=== PATIENT | male | born 1995 | race Caucasian/White ===

== ENCOUNTER → 2017-10-05 | Emergency (ER) | payer MEDICAID ==
[~2017-10-05] VITALS: Ht 170.2 cm; Wt 72.7 kg
[~2017-10-05] MED LIST: EPIN0.3P3 IM; LORazepam 2 mg/ml vial IM ONE; diphenhydrAMINE 50 mg/ml inj IM ONE; normal saline 1000ML IV soln IVB ONE; normal saline 1000ml 1,000 ML IV ONE; ringers solution, lactated 1000ml IV soln IV ONE
[2017-10-05 02:57] LABS: CREATINE KINASE 650 U/L (39-308)
[2017-10-05 03:53] LABS: URINE AMPHETAMINE SCREEN POSITIVE (Neg); URINE BARBITUATE SCREEN NEGATIVE (Neg); URINE BENZODIAZEPINES SCREEN NEGATIVE (Neg); URINE CANNABINOID SCREEN POSITIVE (Neg); URINE COCAINE SCREEN NEGATIVE (Neg); URINE METHADONE SCREEN NEGATIVE (Neg); URINE OPIATE SCREEN NEGATIVE (Neg); URINE PHENCYCLIDINE SCREEN NEGATIVE (Neg)
[2017-10-05 04:20] VITALS: BP 109/64
== END | disposition home or self-care (01) ==
LOC: ER 02:32
DX: S00.03XA Contusion of scalp, initial encounter (principal); S70.211A Abrasion, right hip, initial encounter; S40.211A Abrasion of right shoulder, initial encounter; F15.10 Other stimulant abuse, uncomplicated; R41.82 Altered mental status, unspecified; Z79.899 Other long term (current) drug therapy; W22.8XXA Striking against or struck by other objects, initial encounter; Y93.89 Activity, other specified; Y92.810 Car as the place of occurrence of the external cause; Y99.8 Other external cause status
CPT/HCPCS: 36415; 70450; 80305; 82550; 96372; 99285; J7120

== ENCOUNTER 2020-01-10 09:55 | Emergency (ER) | payer MEDICAID ==
[~2020-01-10] VITALS: Ht 175.3 cm; Wt 70.7 kg
[~2020-01-10 09:55] MED LIST changes: -LORazepam 2 mg/ml vial IM ONE; -diphenhydrAMINE 50 mg/ml inj IM ONE; -normal saline 1000ML IV soln IVB ONE; -normal saline 1000ml 1,000 ML IV ONE; -ringers solution, lactated 1000ml IV soln IV ONE
[2020-01-10 09:58] VITALS: BP 145/69
== END 2020-01-10 12:53 | disposition home or self-care (01) ==
LOC: ER 09:56
DX: F15.10 Other stimulant abuse, uncomplicated (principal); F41.9 Anxiety disorder, unspecified; F17.200 Nicotine dependence, unspecified, uncomplicated; F10.10 Alcohol abuse, uncomplicated; Z79.899 Other long term (current) drug therapy; Z00.8 Encounter for other general examination
CPT/HCPCS: 99281

== ENCOUNTER 2020-02-03 03:46 | Emergency (ER) | payer MEDICAID ==
[~2020-02-03] VITALS: Ht 172.7 cm; Wt 65.0 kg
[2020-02-03 03:51] VITALS: BP 144/105
== END 2020-02-03 04:22 ==
LOC: ER 03:46
DX: S01.511A Laceration without foreign body of lip, initial encounter (principal); S09.90XA Unspecified injury of head, initial encounter; F41.9 Anxiety disorder, unspecified; F15.10 Other stimulant abuse, uncomplicated; Z02.89 Encounter for other administrative examinations; W22.8XXA Striking against or struck by other objects, initial encounter; Y93.89 Activity, other specified; Y92.89 Other specified places as the place of occurrence of the external cause; Y99.8 Other external cause status
CPT/HCPCS: 82948; 99283

== ENCOUNTER 2024-10-14 11:18 | Inpatient (IN) | payer MEDICAID ==
[~2024-10-14] VITALS: Ht 175.3 cm; Wt 80.5 kg
[~2024-10-14 11:18] MED LIST changes: +CEPH-585 PO; +NAPR-56 PO; +SULF1TAB49 PO
[2024-10-14] MEDS: TETanus/Pertussis (Acell)/Diphther VAC/PF (Tdap-Adult) 0.5ml syringe IMVAC ONE (11:41)
--- NOTE | 2024-10-14 11:41 | Physician Documentation ---
History of Present Illness ~ Chief Complaint: Bite-animal Stated Complaint: R HAND RECHECK Time Seen by MD: 11:31 Primary Medical Doctor: none HPI This 28-year-old male returns to the ED after being seen recently for a suspected insect/abscess or animal bite. The patient was placed on Bactrim and Keflex. however ,patient has developed worse symptoms in his right hand this is no longer draining and has increased swelling. denies any fevers Medication Reconciliation Allergies: Coded Allergies: No Known Allergies (Unverified , 10/11/24) Miscellaneous Medications Home Med List (No Home Medications), (Reported) Discontinued Medications Cephalexin*Monohydrate* (Keflex*), 1 CAP PO TID Discontinued Reason: Diagnosis changed Epinephrine (Epipen 2-Casimiro), 1 SYR IM ONCE PRN for allergies Discontinued Reason: Diagnosis changed Naproxen (Naproxen), 1 TAB PO Q12H Discontinued Reason: Diagnosis changed Sulfamethoxazole/Trimethoprim (Bactrim Ds Tablet), 1 TAB PO Q12H Discontinued Reason: Diagnosis changed Past Medical History Past Medical History: Anxiety Past Surgical History: no surgical history Alcohol Use: Abuse Drug Use: methamphetamine Lives with: Family Lives In: Home Occupation: employed Physical Exam Vital Signs: Temperature: 97.8, Source: Temporal, Heart Rate: 121, Respiratory Rate: 16, BP: 124/81, Pulse Oximetry: 100, Weight: 80.500 Physical Exam General: Alert, no apparent distress. Extremities: Normal range of motion, no deformity. r hand 2nd digit is resting in a flexed posture, does not have fusiform swelling over the whole finger notable swelling proximal to incision site . n Neurologic: Oriented x4. Psychiatric: Normal mood and affect. Progress Results/Orders Results/Orders Orders - DAMIÁN DHALIWAL [employer] OPERATOR Page Hospitalist (10/14/24 ) * Npo After Midnight * (10/14/24 12:05) Culture Blood (10/14/24 12:30) Monitor (10/14/24 12:30) Saline Lock (10/14/24 12:30) Completed Orders - DAMIÁN DHALIWAL [employer] OPERATOR Tetanus/Pertuss/Diph Acell/Pf (Boostrix (10/14/24 11:35) Piperacillin/Tazo 4.5gm/100ml (Zosyn 4.5 (10/14/24 12:05) Normal Saline 1000ml (0.9% Sodium Chlori (10/14/24 12:05) Cbc/Diff (10/14/24 12:30) Urinalysis, Cult If Indicated (10/14/24 12:30) Procalcitonin (10/14/24 12:30) BMP (10/14/24 12:30) Lacticsepsis (10/14/24 12:30) Medications Received in ER Medications (Trade) Dose Ordered Sig/Kirsten Route PRN Reason Start Time Stop Time Status Last Admin Dose Admin (Boostrix vaccine syringe) 0.5 ml ONCE ONCE IMVAC 10/14/24 11:35 10/14/24 11:36 DC 10/14/24 11:41 0.5 ML Piperacillin/ Tazobactam/ Dextrose 100 ml @ 100 mls/hr NOW ONCE IV 10/14/24 12:05 10/14/24 13:04 DC 10/14/24 12:59 100 MLS/HR (0.9% sodium chloride (NS) 1000ml IV soln) 2,000 ml ONCE ONCE IVB 10/14/24 12:05 10/14/24 12:06 DC 10/14/24 12:53 2,000 ML Vital Signs 10/14/24 11:19 Temp 97.8 Pulse 121 Resp 16 B/P (MAP) 124/81 Pulse Ox 100 Laboratory Tests Test 10/14/24 12:41 White Blood Count 10.1 Red Blood Count 5.30 Hemoglobin 16.5 Hematocrit 47.9 Mean Corpuscular Volume 90.3 Mean Corpuscular Hemoglobin 31.1 H Mean Corpuscular Hemoglobin Concent 34.5 Red Cell Distribution Width 14.3 Platelet Count 302 Mean Platelet Volume 8.0 Neutrophils (%) (Auto) 74.5 Lymphocytes (%) (Auto) 17.1 L Monocytes (%) (Auto) 7.2 Eosinophils (%) (Auto) 0.8 Basophils (%) (Auto) 0.4 Neutrophils # (Auto) 7.6 Lymphocytes # (Auto) 1.7 Monocytes # (Auto) 0.7 Eosinophils # (Auto) 0.1 Basophils # (Auto) 0.0 CBC Comment Prothrombin Time 10.9 INR International Normalized Ratio 1.1 Activated Partial Thromboplast Time 30 Coagulation Comments Sodium Level 135 Potassium Level 4.5 Chloride Level 101 Carbon Dioxide Level 25.1 Anion Gap 9 Blood Urea Nitrogen 15 Creatinine 1.16 H Estimated GFR/1.73 m2 76 BUN/Creatinine Ratio 12.9 Glucose Level 93 Lactic Acid Level 0.8 Calcium Level 9.6 Albumin 4.3 Procalcitonin 0.20 Chemistry Comments Microbiology Date/Time Source Procedure Growth Status 10/14/24 12:45 Blood Arm Left Blood Culture - Preliminary NEGATIVE (LESS THAN 24 HOURS) Resulted Medical Decision Making Findings Dr winkler is aware of PT . he will take him to OR for washout tomorrow NPO at midnight has no signs tenosynovitis at this time Differential Dx:Considerations: Include: Abrasion, Allergic reaction, Anaphylaxis, Cellulitis, Contusion, Fracture, Hematoma, Insect envenomation, Laceration, Neurovascular injury, Punture wound, Retained foreign body, Urticaria, Other Departure Disposition: 09 ADMITTED INPATIENT Impression: Primary Impression: Cellulitis Discharge Instructions: Animal Bite, Adult Referrals: NO PRIMARY CARE PROVIDER (PCP) Signature Scribe Signature: h Attestation: Scribed for Ale Marie MD by Damián Swain NP . 10/14/24 15:10 DAMIÁN DHALIWAL NP Oct 14, 2024 11:40
--- NOTE | 2024-10-14 12:41 | HISTORY AND PHYSICAL ---
History & Physical Providers to CC ~ History of Present Illness Reason for Admit\Complaint: Cellulitis History of Present Illness Chief complaint right hand redness swelling x2 weeks History of present illness patient is a 28-year-old that was bitten by his own dog about two weeks ago. Patient came to the ER on 10/11/2024 and had an I&D done of his right hand. Is says he was given antibiotics two different types he does not know the names of he went home he was taking them for the last two days but his redness puffiness of his hand continued to increase and he decided to come back in to the hospital. The ER nurse practitioner just in [place] spoke to Dr. Mueller who agrees to do a washout tomorrow morning patient is to be made NPO at midnight and admitted for IV antibiotics he was started on Zosyn in the ER. Unfortunately patient does not know the vaccination status of the dog even though it has his own dog when he got from his friend Allergies: Coded Allergies: No Known Allergies (Unverified , 10/11/24) Home Medications Home Medications Active Naproxen 500 Mg Tablet 1 Tab PO Q12H Keflex* (Cephalexin HCl) 500 Mg Capsule 1 Cap PO TID 7 Days Bactrim Ds Tablet (Sulfamethoxazole/Trimethoprim) 800 Mg-160 Mg Tablet 1 Tab PO Q12H 7 Days Epipen 2-Casimiro (Epinephrine HCl) 0.3 Mg/0.3 Ml Auto.injct 1 Syr IM ONCE PRN Past Medical History Past Medical History Past medical history nothing of significance Past surgical history cholecystectomy Social history he is single drinks a couple of beers a week smokes 10 cigarettes a day illicit drug abuse with marijuana Family history nothing of significance Review of systems negative for all 10 systems reviewed Exam Vitals: Vital Signs Date Time Temp Pulse Resp B/P (MAP) Pulse Ox O2 Delivery O2 Flow Rate FiO2 10/14/24 11:19 97.8 121 16 124/81 100 General: Patient is alert and oriented x4 in no acute distress lying down comfortably speaking in full sentences HEENT normocephalic nontraumatic head PERRLA. EOMI. CVS first and second heart sounds are regular rate rhythm no murmurs gallops or rubs Respiratory system is clear to auscultate bilaterally no rales rhonchi crackles or wheezing Abdomen is soft bowel sounds are positive nontender nondistended Extremities no clubbing cyanosis or edema Right hand up to the wrist swollen plus four warm to touch with they open wound on the dorsal surface between the thumb and the index finger Though he has decreased range of motion of his fingers he has good peripheral pulses good capillary refills no crepitations palpated Neurological exam no focal deficits Advance Care Planning Advanced Care plannin - 30 Minutes Additional Plan Assessment and plan --Right hand cellulitis Patient made NPO at midnight for possible washout by Dr. Mueller in a.m. Continue with IV Zosyn Patient is started on DVT prophylaxis Patient is a full code Possible DC home in a.m. Date of Service: Oct 14, 2024 Billing Provider: JAVIER KERN MD Common Visit Codes: 84900-[id number] INP/OBS CARE (HIGH) JAVIER KERN MD Oct 14, 2024 12:41
[2024-10-14] MEDS ORDERED: potassium Cl 40MEQ/1/2NS 520ml 520 ML IV PRN (12:45)
[2024-10-14] MEDS ORDERED: magnesium hydroxide 30ml (MOM) UD suspension PO PRN (12:45)
[2024-10-14] MEDS ORDERED: mag hydrox/Alum hydrox/simeth 30ml oral suspension PO PRN (12:45)
[2024-10-14] MEDS ORDERED: magnesium Cl slow-release 64mg tablet PO PRN (12:45)
[2024-10-14] MEDS ORDERED: HYDROcodone/acetaminophen 5mg/325mg tablet PO PRN (12:45)
[2024-10-14] MEDS ORDERED: ondansetron/PF 4mg/2ml inj IV PRN (12:45)
[2024-10-14] MEDS ORDERED: potassium Cl 20 mEq SR tablet PO PRN ×2 (12:45)
[2024-10-14] MEDS ORDERED: magnesium sulf-water 4G/100mL 100 ML IV PRN (12:45)
[2024-10-14] MEDS ORDERED: magnesium sulf-water 2g/50mL 50 ML IV PRN (12:45)
[2024-10-14 12:53] LABS: MEAN PLATELET VOLUME 8.0 FL (7.4-10.4); RED CELL DISTRIBUTION WIDTH 14.3 % (11.5-14.5)
[2024-10-14] MEDS: normal saline 1000ML IV soln IVB ONE (12:53)
[2024-10-14] MEDS: piperacillin/tazo 4.5gm/100ml 100 ML IV ONE (12:59)
[2024-10-14 13:10] LABS: CREATININE 1.16 MG/DL (0.60-1.10); TOTAL CARBON DIOXIDE 25.1 MMOL/L (24-32); eCRCL 97 ML/MIN; eGFR 76 ML/MIN
[2024-10-14 13:34] LABS: APTT 30 SECONDS (22-32); INR 1.1 INR
[2024-10-14 14:07] LABS: LEUKOCYTE ESTERASE ,URINE NEGATIVE (Neg); NITRITES, URINE NEGATIVE (Neg); OCCULT BLOOD,URINE NEGATIVE (Neg)
[2024-10-14 14:09] LABS: UA COLLECTION TYPE NON-SPECIFIED
[2024-10-14 14:14] LABS: URINE AMPHETAMINE SCREEN NEGATIVE (Neg); URINE BARBITUATE SCREEN NEGATIVE (Neg); URINE BENZODIAZEPINES SCREEN NEGATIVE (Neg); URINE CANNABINOID SCREEN POSITIVE (Neg); URINE COCAINE SCREEN NEGATIVE (Neg); URINE METHADONE SCREEN NEGATIVE (Neg); URINE OPIATE SCREEN NEGATIVE (Neg); URINE PHENCYCLIDINE SCREEN NEGATIVE (Neg)
[2024-10-14] MEDS ORDERED: NO HOME MEDS (14:18)
[2024-10-14 15:40] VITALS: BP 127/73; PULSE 80; RESP 18; TEMP 97.9; O2SAT 98
[2024-10-14] MEDS: piperacillin/tazo 4.5gm/100ml 100 ML IV SCH (16:49)
[2024-10-14 18:00] VITALS: BP 127/66; PULSE 69; RESP 17; TEMP 97; O2SAT 98
[2024-10-14] MEDS: K and/or MAG REPLACEMENT MC SCH (19:22)
[2024-10-14 20:00] VITALS: RESP 17; O2SAT 98
[2024-10-14] MEDS: docusate sod 100mg capsule PO SCH (20:14)
[2024-10-14 22:00] VITALS: BP 124/70; PULSE 55; RESP 18; TEMP 98.1; O2SAT 100
[2024-10-15] VITALS (22 sets, daily range): BP systolic 106–131; BP diastolic 51–98; PULSE 47–81; RESP 10–20; TEMP 97.6–98.8; O2SAT 95–99
[2024-10-15 04:51] LABS: MEAN PLATELET VOLUME 8.0 FL (7.4-10.4); RED CELL DISTRIBUTION WIDTH 13.7 % (11.5-14.5)
[2024-10-15 05:13] LABS: CREATININE 1.10 MG/DL (0.60-1.10); TOTAL CARBON DIOXIDE 24.0 MMOL/L (24-32); eCRCL 102 ML/MIN; eGFR 81 ML/MIN
[2024-10-15] MEDS: enoxaparin 40mg/0.4ml syringe SUBCUT SCH (06:37)
[2024-10-15] MEDS ORDERED: BUPIVAcaine/PF 2.5mg/ml (0.25%) 10ml vial ONE (09:14)
[2024-10-15] MEDS ORDERED: bacitracin 15gm ointment TP ONE (09:14)
[2024-10-15] MEDS ORDERED: midazolam 1 mg/ML 2ml injection ONE (09:25)
[2024-10-15] MEDS ORDERED: fentaNYL/PF 50MCG/1 ML 2ML syringe ONE ×2 (09:25→09:55)
[2024-10-15] MEDS ORDERED: propofol inj 20 ML IV ONE (09:25)
[2024-10-15] MEDS ORDERED: dexamethasone sod phosphate 4mg/ml inj. ONE (09:26)
[2024-10-15] MEDS ORDERED: ondansetron/PF 4mg/2ml inj ONE (09:26)
[2024-10-15] MEDS ORDERED: LIDOcaine 1%/PF 5ML 10 MG/ML VIAL ONE (09:26)
--- NOTE | 2024-10-15 09:38 | ELECTROCARDIOGRAPH REPORT ---
[facility] Test Date: 2024-10-15 Test Time: 07:29:40 Pat Name: DEVI HART Department: Room: [place] [address] [address] Gender: M Biomedical Engineering Technician: IRIS : 1995 Requested By: MECHELLE HUERTA Order Number: [id number] Reading MD: Dr. MAX Diaz Measurements Intervals [place] Rate: 49 P: 51 UT: 132 QRS: 89 QRSD: 100 T: 56 QT: 438 QTc: 395 Interpretive Statements Marked sinus bradycardia Electronically Signed On 10-15-2024 17:31:[address] MAX Diaz Please click the below link to view image of tracing.
[2024-10-15] MEDS ORDERED: acetaminophen 1,000mg/100ml IV 100 ML IV ONE (09:45)
[2024-10-15] MEDS ORDERED: morphine 4 MG/ML inj SYRINge IV PRN (10:05)
[2024-10-15] MEDS ORDERED: ondansetron/PF 4mg/2ml inj IV PRN (10:05)
[2024-10-15] MEDS ORDERED: labetalol 20mg/4ml (5mg/ml) syringe IV PRN (10:05)
[2024-10-15] MEDS ORDERED: fentaNYL/PF 50MCG/1 ML 2ML syringe IV PRN ×2 (10:05)
[2024-10-15] MEDS ORDERED: hydrALAZINE 20mg/ml inj. IV PRN (10:05)
[2024-10-15] MEDS: ringers solution, lacted 1,000 ML IV SCH (10:05)
--- NOTE | 2024-10-15 15:26 | PROGRESS NOTE- Residence ---
Progress Note - Resident Providers to CC Resident Creating Document: LUISA ARRIAGA RES CC: JORDEN FIORE MD ~ Antibiotic Timeout Antibiotic Ordered?: Yes Subjective Patient is seen this morning after the surgery. , right hand is wrapped in dressing. He is complaining of pain 09/07. , no other complaints. Eager to go home early Objective Vital Signs Date Time Temp Pulse Resp B/P (MAP) Pulse Ox O2 Delivery O2 Flow Rate FiO2 10/15/24 11:10 78 12 131/87 (102) 98 Room Air 0.0 10/15/24 10:17 97.0 Result Diagram: 10/15/24 0433 10/15/24 0433 General: Adult male, AAO x4, not in apparent distress Head: Normocephalic with an atraumatic Eyes: Pupils- 3mm, reacting to light, conjunctiva- anicteric Nose and throat: No polyps, septum- normal, no mucosal ulcers Neck: Supple, no lymphadenopathy, no carotid bruit, scar present over sternal notch Respiratory: No use of accessory muscles of respiration, Bilateral normal vesiscular breath sounds heard. No wheeze, rhochi or creps Cardiac: S1-S2 heard, rythm regular, no gallop/murmur Abdomen: non distended, no tenderness, no organomegaly, bowel sounds- heard Extremities: Right hand wrapped in dressing no clubbing, no pedal edema, no deformities, peripheral pulses- 2+ Skin: warm and dry, no rash, no purpura Neuro: No focal deficit, gross cranial nerve exam- normal Coagulation Studies Laboratory Tests Test 10/14/24 12:41 Prothrombin Time 10.9 SECONDS (9.0-12.0) INR International Normalized Ratio 1.1 INR Activated Partial Thromboplast Time 30 SECONDS (22-32) Coagulation Comments Assessment Assessment 28-year-old male with no pertinent past medical history with history of dog bite two weeks ago came to the ER with worsening cellulitis of the right hand even after incision and drainage two days ago and on p.o. antibiotics(Keflex and trimethoprim sulfamethoxazole) Plan Plan Right hand cellulitis Possible right hand tenosynovitis 2/2 dog bite s/p incision and drainage on 10/15 -taken to OR this morning and undergone incision and drainage by Dr. Mueller -empirically started on IV Zosyn 4.5 q.8h -follow up on fluid cultures -as per Dr. Mueller patient is few days of IV antibiotics and also he needs to have the drain removed at the time of discharge -pain management with IV Toradol 15 mg q.6 Dog bite -patient does not know the vaccination status of his dog however dog bite happened two weeks ago and his dog does not have any symptoms of rabies -patient received tetanus vaccination but did not receive any rabies vaccine or immunoglobin, and likely he might not be needing them -requested ID input from Dr. Damon. appreciate recs Code Status: Full code Line/tube: PIV DVT prophylaxis: Lovenox Nutrition: Regular diet PT: No Prognosis: Guarded Disposition: Continue care in surgical floor, follow up on cultures, poss dc home over the weekend Luisa Arriaga MD IM PGY-3 resident Date of Service: Oct 15, 2024 Billing Provider: JORDEN FIORE MD, HARIVARSHA, RES Oct 15, 2024 15:26
[2024-10-15] MEDS: ketorolac trometh 15mg/ml vial 15 MG/ML ML IV PRN (15:54)
[2024-10-16] VITALS (7 sets, daily range): BP systolic 106–117; BP diastolic 55–74; PULSE 48–64; RESP 14–18; TEMP 98–98.4; O2SAT 96–100
[2024-10-16 06:03] LABS: MEAN PLATELET VOLUME 8.4 FL (7.4-10.4); RED CELL DISTRIBUTION WIDTH 13.7 % (11.5-14.5)
[2024-10-16 06:13] LABS: CREATININE 1.00 MG/DL (0.60-1.10); TOTAL CARBON DIOXIDE 26.5 MMOL/L (24-32); eCRCL 112 ML/MIN; eGFR 90 ML/MIN
--- NOTE | 2024-10-16 13:51 | PROGRESS NOTE- Residence ---
Progress Note - Resident Providers to CC Resident Creating Document: LUISA ARRIAGA RES CC: JORDEN FIORE MD ~ Antibiotic Timeout Antibiotic Ordered?: Yes If Yes, Indications: right hand cellulitis Subjective Patient is seen this morning. NAOE, sleeping and said no c/o Objective Vital Signs Date Time Temp Pulse Resp B/P (MAP) Pulse Ox O2 Delivery O2 Flow Rate FiO2 10/16/24 08:00 18 99 Room Air 10/16/24 06:00 98.0 48 106/59 (75) 10/15/24 11:10 0.0 Result Diagram: 10/16/24 0501 10/16/24 0501 General: Adult male, AAO x4, not in apparent distress Head: Normocephalic with an atraumatic Eyes: Pupils- 3mm, reacting to light, conjunctiva- anicteric Nose and throat: No polyps, septum- normal, no mucosal ulcers Neck: Supple, no lymphadenopathy, no carotid bruit, scar present over sternal notch Respiratory: No use of accessory muscles of respiration, Bilateral normal vesiscular breath sounds heard. No wheeze, rhochi or creps Cardiac: S1-S2 heard, rythm regular, no gallop/murmur Abdomen: non distended, no tenderness, no organomegaly, bowel sounds- heard Extremities: Right hand wrapped in dressing with a drain no clubbing, no pedal edema, no deformities, peripheral pulses- 2+ Skin: warm and dry, no rash, no purpura Neuro: No focal deficit, gross cranial nerve exam- normal Coagulation Studies Laboratory Tests Test 10/14/24 12:41 Prothrombin Time 10.9 SECONDS (9.0-12.0) INR International Normalized Ratio 1.1 INR Activated Partial Thromboplast Time 30 SECONDS (22-32) Coagulation Comments Assessment Assessment 28-year-old male with no pertinent past medical history with history of dog bite two weeks ago came to the ER with worsening cellulitis of the right hand even after incision and drainage two days ago and on p.o. antibiotics(Keflex and trimethoprim sulfamethoxazole) Plan Plan Right hand cellulitis Possible right hand tenosynovitis 2/2 dog bite s/p incision and drainage on 10/15 -taken to OR and undergone incision and drainage by Dr. Mueller on 10/15 -continue IV Zosyn 4.5 q.8h -follow up on fluid cultures -as per Dr. Mueller patient is few days of IV antibiotics and also he needs to have the drain removed at the time of discharge -pain management with IV Toradol 15 mg q.6 Dog bite -patient does not know the vaccination status of his dog however dog bite happened two weeks ago and his dog does not have any symptoms of rabies -patient received tetanus vaccination but did not receive any rabies vaccine or immunoglobin, and likely he might not be needing them -requested ID input from Dr. Damon. recommended no rabies vaccine or IG Code Status: Full code Line/tube: PIV DVT prophylaxis: Lovenox Nutrition: Regular diet PT: No Prognosis: Guarded Disposition: Continue care in surgical floor, follow up on cultures, DC home on friday Luisa Arriaga MD IM PGY-3 resident Date of Service: Oct 16, 2024 Billing Provider: JORDEN FIORE MD, HARIVARSHA, RES Oct 16, 2024 13:51
[2024-10-17 05:54] LABS: MEAN PLATELET VOLUME 8.4 FL (7.4-10.4); RED CELL DISTRIBUTION WIDTH 13.6 % (11.5-14.5)
[2024-10-17 06:18] LABS: LYMPHOCYTES % (MANUAL) 56.0 % (21-51); MONOCYTES % (MANUAL) 7.0 % (2-12); NEUTROPHILS % (MANUAL) 37.0 % (42-75); PLATELET ESTIMATE NORMAL
[2024-10-17 06:32] VITALS: BP 115/66; PULSE 44; RESP 18; TEMP 97.8; O2SAT 99
[2024-10-17 06:35] LABS: CREATININE 0.96 MG/DL (0.60-1.10); TOTAL CARBON DIOXIDE 25.2 MMOL/L (24-32); eCRCL 117 ML/MIN; eGFR > 90 ML/MIN
[2024-10-17 08:00] VITALS: RESP 18
[2024-10-17 10:00] VITALS: BP 113/67; PULSE 47; RESP 16; TEMP 97; O2SAT 99
--- NOTE | 2024-10-17 12:47 | CONSULTATION REPORT ---
History of Present Illness Providers to CC ~ Reason for Admit\Admit Dx: Cellulitis Refering MD: No PMD History of Present Illness Orthopedic consultation 10/11/2024. History of present illness: 28-year-old male who was bit by a dog approximately two weeks prior on 09/28/2024. Despite home therapy started having progressive pain and swelling involving his hand presented to the emergency room on 10/11/2024. He was admitted for abscess cellulitis left hand. Workup included x-rays of his left hand which were unremarkable and then for soft tissue swelling. Past medical history as per the admitting history and physical. Examination: Patient is orthopedic exam was unremarkable except for his right hand which reveal significant swelling of the dorsum and dorsal radial aspect of his metatarsal 2nd mecarpalup to his metacarpalophalangeal joint. Significant fluctuance was noted on examination consistent with abscess formation. Neurological exam is intact vascular exam was intact good capillary refill to all digits. Assessment: Abscess formation right hand in the 2nd ray dorsal. No evidence of flexor tenosynovitis. Plan: Patient will require formal I and D of his right hand placement of drain. Indications risks benefits potential complications and limitations of this procedure were discussed informed consents were obtained. I signed his extremity in preparation for surgery which will be on 10/12/2024. Thank you for the consultation Allergies: Coded Allergies: No Known Allergies (Unverified , 10/11/24) Home Medications Home Medications Active Reported No Home Medications (Home Med List) Each Past Family History Family History: Patient reports no known family medical history. Physical Exam Last Vital Signs Recorded: Temperature: 97.8, Source: Temporal, Heart Rate: 44, Respiratory Rate: 18, BP: 115/66, Pulse Oximetry: 99, Weight: 80.500 Results Diagram Lab Result Diagram: 10/17/24 0522 10/17/24 0522 BRAULIO MENDOZA MD Oct 17, 2024 12:47
--- NOTE | 2024-10-17 12:51 | OPERATIVE REPORT ---
Operative Report Providers to CC ~ Date of Procedure: Oct 17, 2024 Pre-Operative Diagnosis: cellulitis Post-Operative Diagnosis Abscess right hand with cellulitis Procedure Performed I&D right hand placement and drain loose primary closure Surgeon: Braulio Mendoza MD Metal Punch Press Operator None Anesthesiologist: Austen Calderon Type of Anesthesia: General Findings: Patient was found to have a abscess and soft tissue involving the dorsum and radial aspect of the hand involving the 2nd ray metacarpal region. No joint involvement in the flexor tendon involvement. Complications None Prosthetics\Implants used: Small Jaiden drain Estimated Blood Loss: Less than 50 cc Specimen Removed: Purulent exudate and necrotic fatty tissue Description of Procedure: Patient was taken to the operating room next available operating room time for I and D of his right hand. I had obtained informed consents. Once in the operating room he was given a general anesthetic his right arm and hand were prepped and draped in usual sterile orthopaedic fashion surgical time-out was taken per protocol and the case was begun. After elevating the hand for approximately 10 minutes tourniquet was insufflated to the upper arm that was padded. Incision falling and 2nd ray his hand on the dorsal radial aspect was made measuring approximately 2-3 inches. Dissection was then carried down and found significant purulent material extra-articular. No joint involvement. Debridement of the exudate and fibrinous desiccated fatty tissue was accomplished without difficulty. No extension into the flexor tendon inches. After copious antibiotic irrigation quarter-inch [place] drain was placed in the depths of the wound exiting proximally and radially and loose simple closure of 2. Nylon was used to approximate the incision. Sterile dressings were applied including Xeroform dressing sterile 4x4s sterile Keira wrap and a 2 in Oh wrap for mild bulky compressive dressing. Good capillary refill returned and were maintained of the 2nd digit and all digits to the hand. Case was completed patient was extubated and taken to the recovery room in stable condition there were no apparent perioperative complications Counts repoted as correct: Yes BRAULIO MENDOZA MD Oct 17, 2024 12:51
[2024-10-17] MEDS ORDERED: AMOX-580 PO (14:37)
[2024-10-17] MEDS ORDERED: LACT1CAP26 PO (14:37)
[2024-10-17] MEDS ORDERED: DOXY-243 PO (14:37)
--- NOTE | 2024-10-17 14:58 | DISCHARGE SUMMARY-Residence ---
Discharge Summary Providers to CC Resident Creating Document: KRYSTLE MEJIA, JOELLE CC: JORDEN FIORE MD ~ Discharge Summary Admission Diagnosis: cellulitis Admission Diagnosis Comment: Cellulitis secondary to dog bite Hospital Course DATE OF ADMISSION: DATE OF DISCHARGE: Discharge Diagnosis\Comment: Cellulitis secondary to dog bite Operations\Procedures: Incision and drainage Consultants: Dr. Mueller Complications: None Condition on DC: Stable New Medications: Amox Tr/Potassium Clavulanate 875/125 MG (Augmentin 875/125 MG) 875 Mg-125 Mg Tablet 1 TAB PO BID for 7 Days, #14 TAB Doxycycline Hyclate (Doxycycline Hyclate) 100 Mg Tablet.dr 100 MG PO BID for 7 Days, #14 TAB Lactobacillus Rhamnosus (Culturelle) 10 Billion Cell Capsule 1 CAP PO DAILY for 30 Days, #30 CAP 0 Refills Discharge Summary: HISTORY OF PI PER ADMITTING PHYSICIAN: A 28-year-old that was bitten by his own dog about two weeks ago. Patient came to the ER on 10/11/2024 and had an I&D done of his right hand. Is says he was given antibiotics two different types he does not know the names of he went home he was taking them for the last two days but his redness puffiness of his hand continued to increase and he decided to come back in to the hospital. The ER nurse practitioner just in [place] spoke to Dr. Mueller who agrees to do a washout tomorrow morning patient is to be made NPO at midnight and admitted for IV antibiotics he was started on Zosyn in the ER. Unfortunately patient does not know the vaccination status of the dog even though it has his own dog when he got from his ucon Hospital course: A 28-year-old male patient was bitten by his own dog about two weeks ago, patient developed right hand cellulitis, patient's orthopedic exam revealed significant swelling of the dorsum and dorsal radial aspect of his metatarsal 2nd through his metacarpophalangeal joint and significant flatulence was noted which was consistent with abscess formation. Neurological exam was intact and good capillary refill to all digits.Patient underwent an incision and drainage on 10/[address] Mueller and was empirically treated with IV Zosyn 4.5 q.8h and he was given IV Toradol 15 mg q.6 for his pain management. Patient's wound culture reported Gram-positive cocci. Patient has been discharged on doxycycline plus Augmentin course for one week. And recommended wound care c onsult appointment. Vital Signs Date Time Temp Pulse Resp B/P (MAP) Pulse Ox O2 Delivery O2 Flow Rate FiO2 10/17/24 14:45 Room Air 10/17/24 10:00 97.0 47 16 113/67 (82) 99 10/15/24 11:10 0.0 Laboratory Tests Test 10/16/24 05:01 10/17/24 05:22 White Blood Count 9.7 X10'3 6.2 X10'3 Red Blood Count 4.85 X10'6 4.74 X10'6 Hemoglobin 15.0 g/dl 14.6 g/dl Hematocrit 43.2 % 42.6 % Mean Corpuscular Volume 89.1 FL 89.9 FL Mean Corpuscular Hemoglobin 30.9 PG 30.9 PG Mean Corpuscular Hemoglobin Concent 34.6 g/dL 34.4 g/dL Red Cell Distribution Width 13.7 % 13.6 % Platelet Count 296 X10'3 296 X10'3 Mean Platelet Volume 8.4 FL 8.4 FL Neutrophils (%) (Auto) 72.9 % 35.1 % Lymphocytes (%) (Auto) 18.1 % 54.9 % Monocytes (%) (Auto) 8.3 % 6.7 % Eosinophils (%) (Auto) 0.2 % 2.1 % Basophils (%) (Auto) 0.5 % 1.2 % Neutrophils # (Auto) 7.0 X10'3 2.2 X10'3 Lymphocytes # (Auto) 1.8 X10'3 3.4 X10'3 Monocytes # (Auto) 0.8 X10'3 0.4 X10'3 Eosinophils # (Auto) 0.0 X10'3 0.1 X10'3 Basophils # (Auto) 0.1 X10'3 0.1 X10'3 CBC Comment Sodium Level 137 MMOL/L 136 MMOL/L Potassium Level 4.1 MMOL/L 4.0 MMOL/L Chloride Level 102 MMOL/L 103 MMOL/L Carbon Dioxide Level 26.5 MMOL/L 25.2 MMOL/L Anion Gap 9 8 Blood Urea Nitrogen 15 MG/DL 14 MG/DL Creatinine 1.00 MG/DL 0.96 MG/DL Estimated GFR/1.73 m2 90 ML/MIN > 90 ML/MIN BUN/Creatinine Ratio 15.0 14.6 Glucose Level 136 MG/DL 88 MG/DL Calcium Level 9.2 MG/DL 9.0 MG/DL Magnesium Level 2.3 MG/DL 2.0 MG/DL Total Bilirubin 0.3 MG/DL 0.4 MG/DL Aspartate Amino Transf (AST/SGOT) 17 U/L 18 U/L Alanine Aminotransferase (ALT/SGPT) 35 U/L 34 U/L Alkaline Phosphatase 77 IU/L 66 IU/L Total Protein 7.3 G/DL 7.2 G/DL Albumin 3.3 G/DL 3.3 G/DL Globulin 4.0 G/DL 3.9 G/DL Albumin/Globulin Ratio 0.8 0.8 Chemistry Comments Differential Total Cells Counted 100 Neutrophils % (Manual) 37.0 % Lymphocytes % (Manual) 56.0 % Monocytes % (Manual) 7.0 % Platelet Estimate Normal Red Blood Cell Morphology Normal Basophilic Stippling Discharge advise: Please follow-up with your PCP within a week Please make sure you do not miss your wound care appointments. Please make sure you complete your antibiotic course as prescribed Please maintain strict hygiene of your right hand. Please come to emergency in case of increased swelling or worsening symptoms of pain of your right hand Discharge medication: New Medications: Amox Tr/Potassium Clavulanate 875/125 MG (Augmentin 875/125 MG) 875 Mg-125 Mg Tablet Doxycycline Hyclate 100 Mg Tablet.dr Orta Rhamnelvis (Culturelle) 10 Billion Cell Capsule *Problems/Diagnosis: (1) Cellulitis and abscess of finger, unspecified Status: Acute Total Time Spent on D/C: > 30 Minutes Date of Service: Oct 17, 2024 Billing Provider: JORDEN FIORE MD, JAHNAVI, RES Oct 17, 2024 14:58
== END 2024-10-17 16:55 | disposition home or self-care (01) | DRG 364 ==
LOC: ER 11:18 → ED HOLD 12:50 → SUR 3N 15:30
PROVIDERS: ADMIT Internal Medicine; ATTEND Internal Medicine
PROC: 0JBJ0ZZ Excision of Right Hand Subcutaneous Tissue and Fascia, Open Approach (ICD-10-PCS; principal; 2024-10-17)
DX: L02.511 Cutaneous abscess of right hand (principal); F41.9 Anxiety disorder, unspecified; L03.113 Cellulitis of right upper limb; Z87.891 Personal history of nicotine dependence; Z90.49 Acquired absence of other specified parts of digestive tract; W54.0XXA Bitten by dog, initial encounter; Y93.89 Activity, other specified; Y92.89 Other specified places as the place of occurrence of the external cause; Y99.8 Other external cause status
CPT/HCPCS: 36415; 80048; 80053; 80305; 81003; 82948; 83605; 83735; 84145; 85007; 85025; 85610; 85730; 87040; 87070; 87075; 87077; 87081; 87186; 90471; 90715; 93005; 99285; A4618; A6222; A6223; A6446; A6449; A7000; G0378; J0131; J1100; J1650; J1885; J2250; J2405; J2543; J2704; J3010; J3490; J7030; J7120

== ENCOUNTER 2024-11-25 11:12 | Emergency (ER) | payer MEDICAID ==
[~2024-11-25] VITALS: Ht 175.3 cm; Wt 71.0 kg
[~2024-11-25 11:12] MED LIST changes: -CEPH-585 PO; -EPIN0.3P3 IM; +LACT1CAP26 PO; -NAPR-56 PO; +NO HOME MEDS; -SULF1TAB49 PO
[2024-11-25 11:27] VITALS: BP 117/95; PULSE 106; RESP 15; TEMP 99.2; O2SAT 99
[2024-11-25] MEDS ORDERED: SULF1TAB49 PO (13:29)
--- NOTE | 2024-11-25 13:29 | Physician Documentation ---
History of Present Illness ~ Chief Complaint: Hand pain Stated Complaint: INFECTION ON HAND Time Seen by MD: 12:47 Primary Medical Doctor: No PMD HPI This is a 28-year-old male who presents with a wound to the posterior aspect of his left hand at the base of the 3rd finger, patient reports he sustained the wound 2-3 weeks ago and is concerned that the wound is now infected. Tetanus within 5 years: Yes Medication Reconciliation Allergies: Coded Allergies: No Known Allergies (Unverified , 11/25/24) Scheduled Lactobacillus Rhamnosus (Culturelle), 1 CAP PO DAILY Sulfamethoxazole/Trimethoprim (Bactrim Ds Tablet), 1 TAB PO Q12H Miscellaneous Medications Home Med List (No Home Medications), (Reported) Past Medical History Past Medical History: Anxiety Past Surgical History: no surgical history Patient History: Patient reports no known family medical history. Alcohol Use: Abuse Drug Use: methamphetamine Lives with: Family Lives In: Home Occupation: employed Review of Systems ROS As stated above in the HPI, otherwise all systems are reviewed and negative. Physical Exam Vital Signs: Temperature: 99.2, Heart Rate: 106, Respiratory Rate: 15, BP: 117/95, Pulse Oximetry: 99, Weight: 71.000 Oxygen Flow Rate: 0 Physical Exam VITALS: Reviewed and as above. GENERAL: Alert, nontoxic appearing, no apparent distress. RESPIRATORY: No increased work of breathing, no respiratory distress, speaking in full clear sentences MUSCULOSKELETAL: Left hand range of motion intact, no tenderness along tendon sheaths, no fusiform swelling of fingers SKIN: Approximately 1 cm shallow laceration to the posterior aspect of left hand at the base of the 3rd finger, small amount of purulent drainage, no eviden ce of deep tissue involvement, no evidence of retained foreign body, erythema and mild swelling surround the wound without significant induration, area is tender to palpation, erythema and tenderness does not extend to the palmar aspect of 3rd finger or the palm of the hand. Progress Results/Orders Results/Orders Vital Signs 11/25/24 11:27 Temp 99.2 Pulse 106 Resp 15 B/P (MAP) 117/95 Pulse Ox 99 O2 Flow Rate 0 Medical Decision Making Findings This 28-year-old male presented with a wound to the posterior aspect of his left hand sustained approximately 2-3 weeks ago, wound does appear to be infected indicating need for antibiotics however infection appears to be localized and it is reassuring patient reports no fever or other systemic symptoms. Additionally reassuring hand is neurovascularly intact. Wound is not amenable to suturing. Patient will be placed on course of oral antibiotics and provided home care instructions. Patient and family member provided home care instructions, return to care precautions, and follow up instructions which they verbalized understanding of. Hand Diff Dx:Considerations: Include: Abrasion, Contusion, Gout, Herpetic zev, Laceration, Neurovascular injury, Open fracture, Septic, Sprain, Tenosynovitis, Cellulitis Departure Time of Disposition: 13:28 Disposition: 01 HOME / SELF CARE / HOMELESS Impression: Primary Impression: Wound infection Condition: Improved Discharge Instructions: Wound Infection, [id number] Additional Instructions: Use warm moist compresses on the area 20 minutes at a time two to 3 times a day, otherwise keep the area clean dry and covered. Change the dressings at least once a day or whenever they becomes soiled. Please take antibiotics as prescribed. Please follow up with your primary care provider in the next few days. Please return to the emergency department for any new or worsening concerning symptoms. Referrals: NO PRIMARY CARE PROVIDER (PCP) Prescriptions Sulfamethoxazole/Trimethoprim (Bactrim Ds Tablet) 800 Mg-160 Mg Tablet 1 TAB PO Q12H for 7 Days, #14 TAB Prov: VERNON MANRIQUEZ 11/25/24 Education Educated: Patient Educated regarding: diagnosis, treatment, prognosis, need for follow up Signature Scribe Signature: No scribe Attestation: The note accurately reflects work and decisions made by me.AMELIE Golden 11/25/24 20:46 VERNON MANRIQUEZ Nov 25, 2024 13:28
== END 2024-11-25 13:43 | disposition home or self-care (01) ==
LOC: ER 11:12
DX: L08.9 Local infection of the skin and subcutaneous tissue, unspecified (principal); F15.90 Other stimulant use, unspecified, uncomplicated; F41.9 Anxiety disorder, unspecified
CPT/HCPCS: 99283

== ENCOUNTER 2025-02-24 08:26 | Emergency (ER) | payer MEDICAID ==
[~2025-02-24] VITALS: Ht 180.3 cm; Wt 72.7 kg
[2025-02-24 08:39] VITALS: BP 137/95; PULSE 102; RESP 18; TEMP 97.6; O2SAT 98
[2025-02-24] MEDS: LIDOcaine 1% 30ml preserv. free vial IJ STA (10:44)
[2025-02-24] MEDS: CefTRIAXone 1000mg IM Kit (w/lidocaine diluent) IM ONE (10:44)
[2025-02-24] MEDS ORDERED: DOXY-1 PO (11:04)
--- NOTE | 2025-02-24 11:05 | Physician Documentation ---
History of Present Illness ~ Chief Complaint: Abscess Stated Complaint: SWELLING IN BOTH HANDS Time Seen by MD: 09:34 Primary Medical Doctor: No PMD HPI Patient is a 29-year-old male that presents to the emergency department for evaluation of multiple small wounds that have abscessed mildly to his left hand and right hand. Patient denies fever chills nausea vomiting diarrhea patient reports he lives outside and he is around people that have wounds all the time feels like he may have been exposed to the same bacteria that cause there wounds. Patient denies any other symptoms at this time. Tetanus Within 5 Years: Yes (2024) Medication Reconciliation Allergies: Coded Allergies: No Known Allergies (Unverified , 02/24/25) Scheduled Lactobacillus Rhamnosus (Culturelle), 1 CAP PO DAILY Miscellaneous Medications Home Med List (No Home Medications), (Reported) Past Medical History Past Medical History: Anxiety Past Surgical History: no surgical history Patient History: Patient reports no known family medical history. Alcohol Use: Abuse Drug Use: methamphetamine Lives with: Family Lives In: Home Occupation: employed Review of Systems ROS As stated above in the HPI, otherwise all systems are reviewed and negative. Physical Exam Vital Signs: Temperature: 97.6, Source: Temporal, Heart Rate: 102, Respiratory Rate: 18, BP: 137/95, Pulse Oximetry: 98, Weight: 72.730 Physical Exam VITALS: Reviewed and as above. GENERAL: Alert, no apparent distress. SKIN: Warm and dry, areas of erythema edema and areas of fluctuance consistent with abscess noted to the ring finger on the left hand the left wrist in the right thumb. NEURO: Oriented x4, No motor or sensory deficit PSYCH: Normal mood and affect, no agitation Progress Results/Orders Results/Orders Completed Orders - LATA CHAVEZ Lidocaine 1% 30ml Vial (Xylocaine 1% Via (02/24/25 10:03) Ceftriaxone Im Kit W/Lidocaine (Rocephin (02/24/25 10:10) Medications Received in ER Medications (Trade) Dose Ordered Sig/Kirsten Route PRN Reason Start Time Stop Time Status Last Admin Dose Admin (Xylocaine 1% vial) 10 ml ONCE STAT IJ 02/24/25 10:03 02/24/25 10:07 DC 02/24/25 10:44 10 ML (Rocephin 1GM IM kit (w/lidocaine diluent)) 1,000 mg ONCE ONCE IM 02/24/25 10:10 02/24/25 10:11 DC 02/24/25 10:44 1,000 MG Vital Signs 02/24/25 08:39 Temp 97.6 Pulse 102 Resp 18 B/P (MAP) 137/95 Pulse Ox 98 Medical Decision Making Additional information obtaine: other Findings 29-year-old male presented with multiple small abscessed wounds on bilateral hands. Patient reports living outside with frequent exposure to individuals with wounds, raising concern for exposure to community-associated pathogens. Denies fever, chills, GI symptoms, or systemic toxicity. Assessment: Physical exam revealed multiple superficial abscesses without evidence of deep space infection, lymphangitis, or necrosis. No signs of systemic illness. Abscesses were managed with incision and drainage as indicated, per current guidelines. ] Given the presence of multiple lesions and high-risk location (hands), adjunctive systemic antibiotics were deemed appropriate. Microbiology Considerations: Most hand abscesses are caused by Staphylococcus aureus (including MRSA) and Streptococcus pyogenes; environmental exposure may increase risk for p olymicrobial infection. Empiric therapy should cover MRSA and streptococci. No evidence of bite or water exposure requiring alternative coverage. ED Management: Patient received 1g IM ceftriaxone for broad-spectrum coverage. Discharged with oral doxycycline, which is active against MRSA and streptococci, and is guideline-recommended for outpatient management of skin abscesses in adults. No contraindications to doxycycline noted. Disposition and Follow-up: Patient is stable for discharge. Advised to monitor for signs of worsening infection (fever, spreading erythema, pain, loss of function) and return for reevaluation if symptoms develop. Outpatient follow-up recommended to assess wound healing and need for further intervention. Medical Decision-Making: Discharge is appropriate given absence of systemic symptoms, adequate wound care, and initiation of guideline-concordant antibiotic therapy. The management plan is supported by current evidence and consensus guidelines for skin and soft tissue infections. Differential Dx:Considerations: Include: Abscess, Bacteremia, Cellulitis, Erysipelas, Felon, Gas gangrene, Hidrademitis suppurativa, Impetigo, Lymphangitis, Osteromyelitis, Paronychia, Septicemia, Other Departure Disposition: HOME / SELF CARE / HOMELESS Impression: Primary Impression: Wound abscess Additional Impression: Abscess Condition: Stable Discharge Instructions: Abscess, Care After, Skin Abscess, [id number] Additional Instructions: You were treated in the emergency department for multiple small abscesses (infected wounds) on your hands. You received an injection of ceftriaxone (Rocephin) and will continue treatment with doxycycline at home. Wound Care Keep your hands clean and dry. Wash gently with soap and water, then pat dry. Change any dressings as instructed. If no dressing was applied, leave wounds open to air unless otherwise directed. Elevate your hands when possible to reduce swelling. Avoid using the affected hands for heavy tasks until wounds have healed. Medication Instructions Take doxycycline exactly as prescribed. Do not skip doses and complete the full course, even if you start to feel better. Doxycycline is best taken with a full glass of water. Avoid lying down for at least 30 minutes after taking it. If you experience stomach upset, you may take doxycycline with food. Do not take antacids, calcium, or iron supplements within 2 hours of doxycycline, as they can reduce its effectiveness. What to Watch For Call your doctor or return to the emergency department if you develop: Fever or chills Increasing redness, swelling, or pain around the wounds Pus or drainage that worsens Red streaks spreading from the wounds Difficulty moving your fingers or hand Nausea, vomiting, or diarrhea that does not improve Rash, severe headache, vision changes, or yellowing of the skin/eyes Possible Side Effects Ceftriaxone and doxycycline can cause diarrhea, nausea, or rash. These usually go away after stopping the medication. Rarely, antibiotics can cause allergic reactions. Seek emergency care for trouble breathing, swelling of the face or throat, or severe rash. General Advice Rest and avoid activities that could injure your hands further. Do not share your antibiotics with others. If you have not had a tetanus shot in the past 5 years, ask your doctor if you need one. Schedule a follow-up appointment as directed to check your healing. If you have any questions or concerns, contact your healthcare provider. Referrals: NO PRIMARY CARE PROVIDER (PCP) Prescriptions Doxycycline Hyclate (Doxycycline Hyclate) 100 Mg Capsule 1 CAP PO Q12H for 10 Days, #20 CAP Prov: LATA CHAVEZ 02/24/25 Education Educated: Patient, Family Educated regarding: diagnosis, treatment, need for follow up Signature Scribe Signature: A Attestation: Scribed for Lata Chavez by AMELIE Alejandre . 02/24/25 11:08 LATA CHAVEZ [employer] SUPER[employer] Feb 24, 2025 11:05
== END 2025-02-24 11:16 | disposition home or self-care (01) ==
LOC: ER 08:26
DX: L02.511 Cutaneous abscess of right hand (principal); L02.512 Cutaneous abscess of left hand; F15.90 Other stimulant use, unspecified, uncomplicated; F41.9 Anxiety disorder, unspecified; Z79.899 Other long term (current) drug therapy
CPT/HCPCS: 96372; 99283; J0696; J2003; A6449